=== PATIENT | male | born 1960 | race Caucasian/White ===

== ENCOUNTER 2022-03-30 09:15 | Emergency (ER) | payer BC ==
[~2022-03-30] VITALS: Ht 182.9 cm; Wt 136.4 kg
[~2022-03-30 09:15] MED LIST: ASPIRIN E.C. 8181 MG PO; ATHLETE'S FOOT1%; BRILINTA90 MG PO; COREG 6.256.25 MG/TA PO; DRIZALMA SPRINK20 MG PO; GLUCOPHAGE500 MG/TAB PO; GRALISE300 MG PO; HCTZ 25MG TAB25 MG PO; IMDUR 60MG60 MG/TAB PO; KLONOPIN 1MG1 MG PO; LIDODERM 5% PATC1 EA TP; MASON NATURAL2000 IU PO; MINIPRESS2 MG PO; NITROSTAT0.3 MG SL; OMEGA-31 SGL PO; PRINIVIL40 MG PO; PROCARDIA XL90 MG PO; PROTONIX 40MG T40 MG PO; RANEXA1000 MG PO; RISPERDAL2 MG PO; SENEXON-S 50-81 EACH PO; THE MEDICINE SH1 T18 PO; TYLENOL 8 HR PO
[2022-03-30 09:22] VITALS: TEMP 97.7
[2022-03-30 10:14] LABS: BASO # 0.1 K/mm3 (0.0-0.2); BASO % 1.2 % (0.0-2.0); EOS # 0.4 K/mm3 (0.0-0.7); EOS % 6.2 % (0.0-4.0); GRAN # 3.7 K/mm3 (1.4-6.5); GRAN % 55.9 % (42.2-75.2); HEMATOCRIT 45.6 % (42.0-52.0); HEMOGLOBIN 15.6 g/dl (13.5-18.0); LYMPH # 1.7 K/mm3 (1.2-3.4); LYMPH % 25.2 % (20.0-51.0); MEAN CELL VOLUME 91 fl (80.0-100.0); MEAN CORPUSCULAR HEMOGLOBIN 31 pg (27-31); MEAN CORPUSCULAR HGB CONC 34 g/dl (33.0-37.0); MEAN PLATELET VOLUME 9.5 fl (7.4-10.4); MONO # 0.8 K/mm3 (0.1-0.6); MONO % 11.3 % (1.7-9.3); PLATELET COUNT 353 K/mm3 (130-400); RED BLOOD COUNT 4.99 M/mm3 (4.20-5.60); REDCELL DISTRIBUTION WIDTH-CV 12.8 % (11.5-14.5)
[2022-03-30 10:27] LABS: INR 1.1 (0.8-3.0); PROTHROMBIN TIME 12.5 SECONDS (9.7-12.8)
[2022-03-30 10:30] LABS: PARTIAL THROMBOPLASTIN TIME 40.2 SECONDS (26.0-37.0)
[2022-03-30 10:31] LABS: ALBUMIN 3.9 gm/dL (3.4-4.8); BILIRUBIN,TOTAL 0.5 mg/dL (0.2-1.2); CALCIUM 9.9 mg/dL (8.4-10.2); CREATININE, serum 0.83 mg/dL (0.72-1.25); POTASSIUM 4.2 mmol/L (3.5-4.5); TOTAL PROTEIN 7.8 gm/dL (6.2-8.1)
[2022-03-30] MEDS ORDERED: NORCO 325 MG-51 TAB PO (10:34)
[2022-03-30 10:56] VITALS: BP 125/82; PULSE 104
== END 2022-03-30 10:56 | disposition home or self-care (01) ==
LOC: COL.ER 09:15
PROVIDERS: Emergency Medicine
DX: I74.2 Embolism and thrombosis of arteries of the upper extremities (principal); F17.210 Nicotine dependence, cigarettes, uncomplicated; Z95.1 Presence of aortocoronary bypass graft
CPT/HCPCS: J1644; J3010